=== PATIENT | female | born 1950 | race Caucasian/White ===

== ENCOUNTER → 2019-08-01 | Outpatient (CLI) | payer OTHER | LOC: LAB 10:24 | PROVIDERS: ATTEND Nurse Practitioner | DX: R05 Cough (principal); R06.02 Shortness of breath; Z20.828 Contact with and (suspected) exposure to other viral communicable diseases; R50.9 Fever, unspecified ==

== ENCOUNTER → 2019-09-03 | Outpatient (CLI) | payer OTHER ==
[2019-09-03 09:15] LABS: CREATININE 0.9 mg/dL (0.6-1.0)
== END ==
LOC: CAT 08:37
PROVIDERS: ATTEND Family Medicine
DX: K80.20 Calculus of gallbladder without cholecystitis without obstruction (principal); N28.1 Cyst of kidney, acquired; K76.89 Other specified diseases of liver; E87.1 Hypo-osmolality and hyponatremia; D48.1 Neoplasm of uncertain behavior of connective and other soft tissue; M47.817 Spondylosis without myelopathy or radiculopathy, lumbosacral region; Z90.710 Acquired absence of both cervix and uterus